=== PATIENT | male | born 1975 | race Caucasian/White ===

== ENCOUNTER 2018-07-12 17:47 | Emergency (ER) | payer MEDICAID, SELFPAY ==
[2018-07-12 17:47] VITALS: BP 114/69; PULSE 90; RESP 18; TEMP 36.6; O2SAT 99; BMI 27.6
--- NOTE | 2018-07-12 18:24 | RAD_ITS ---
STUDY: X-RAY - RIGHT HAND, ATTENTION SECOND FINGER REASON FOR EXAM: Male, 43 years old. Laceration TECHNIQUE: History view(s) of the finger were obtained. COMPARISON: None. FINDINGS: Normal metacarpal head. Normal metacarpophalangeal joint. Normal proximal phalanx. Normal middle phalanx. Normal distal phalanx. Normal proximal interphalangeal joint. Normal distal interphalangeal joint. RAD/Finger(s) Min 2 Views IMPRESSION: Normal x-ray examination of the finger. Electronically Signed: Girma Mcdaniel DO at 19:19 EDT Tel [phone], Service support ,
--- NOTE | 2018-07-12 19:17 | ED.DCSUM_ITS ---
- ER Visit Summary Date of Service: 07/12/18 Chief Complaint: Laceration History of Present Illness: The patient is a 43 M with a laceration to the proximal phalanx of his right index finger. This happened about an hour prior to arrival. The patient was removing tile from his floors. He had some bleeding to the area. He does not use blood thinners. Physical Examination: Vitals unremarkable. He has a 0.5 cm laceration to his right index finger at the proximal phalanx, dorsal side. No active bleeding. No foreign bodies visualized. Neurovascular intact distally. Good range of motion. Test Results: X-rays are pending the official read, but I do not appreciate any acute fracture or foreign bodies. Emergency Department Course and Treatment: Patient declined tetanus immunization. The wound was anesthetized with local lidocaine. We copiously. Explored. 3 simple interrupted sutures were placed. Treatment Plan: Follow-up for suture removal in 10 days. Return for any signs of infection or complications. Disposition: Discharge Impression: 1. Laceration right index finger 0.5 cm This note was generated with [employer] dictation software. It may contain incorrect words, spelling, and punctuation that were not noted in review of the chart prior to signing ED Disposition - Plan for ED Patient: Chief Complaint: Laceration Referrals: Marcos White MD [Primary Care Provider] -
--- NOTE | 2018-07-12 19:17 | ED.DEP ---
ED Disposition - Plan for ED Patient: Chief Complaint: Laceration Instructions: ED Laceration Hand Referrals: Marcos White MD [Primary Care Provider] -
[2018-07-12 19:23] VITALS: RESP 16
== END 2018-07-12 19:28 | disposition home or self-care (01) ==
PROVIDERS: Emergency Provider Emergency Medicine; Family Provider Internal Medicine; PCP Internal Medicine
DX: S61.210A Laceration without foreign body of right index finger without damage to nail, initial encounter (principal); K21.9 Gastro-esophageal reflux disease without esophagitis; E78.00 Pure hypercholesterolemia, unspecified; Z72.0 Tobacco use; Z79.899 Other long term (current) drug therapy; W26.9XXA Contact with unspecified sharp object(s), initial encounter; Y93.89 Activity, other specified; Y92.098 Other place in other non-institutional residence as the place of occurrence of the external cause; Y99.8 Other external cause status
CPT/HCPCS: 12001; 73140; 99282

== ENCOUNTER 2021-11-24 11:58 | Emergency (ER) | payer SELFPAY ==
[2021-11-24 11:59] VITALS: BP 140/84; PULSE 80; RESP 18; TEMP 36.5; O2SAT 99; BMI 22.2
[2021-11-24 12:18] VITALS: BP 135/84; PULSE 88; RESP 18; TEMP 36.3; O2SAT 98
--- NOTE | 2021-11-24 12:42 | EKG12_ITS ---
Test Reason : CP Blood Pressure : / mmHG Vent. Rate : 079 BPM Atrial Rate : 079 BPM P-R Int : 144 ms QRS Dur : 080 ms QT Int : 352 ms P-R-T Axes : 085 081 061 degrees QTc Int : 403 ms Normal sinus rhythm Normal ECG Confirmed by KAMLESH LOZANO, KARUNA ([id number]), city editor LACEY SERRANO ([id number]) on 11/25/2021 8:36:50 AM Referred By: FLAVIO/SARI Confirmed By:KARUNA WHITLOCK MD
--- NOTE | 2021-11-24 12:50 | RAD_ITS ---
History: chest pain EXAMINATION/TECHNIQUE: XR Chest 2 Views: COMPARISON: July 07, 2015 FINDINGS: LINES/DEVICES: None. LUNGS: Lungs remain clear but hyperinflated. No pneumothorax. MEDIASTINUM AND CARDIOVASCULAR STRUCTURES: Cardiac silhouette not enlarged. Central airways and mediastinal contour are unremarkable. BONES AND SOFT TISSUES: Unremarkable. RAD/Chest PA and Lateral IMPRESSION: No radiographic evidence of acute cardiopulmonary disease. COPD. at 1311 Reported and signed by: Jesse Barton MD Electronically Signed: Jesse Barton MD at 13:10 EST ,
[2021-11-24 12:53] LABS: Absolute Lymphocyte Count 2.22 X10^3/uL (0.83-4.51); Absolute Neutrophil Count 6.2 X10^3/uL (2.0-7.7); Basophil# 0.03 X10^3/uL; Basophil% 0.3 % (0-1); Eosinophil# 0.12 X10^3/uL; Eosinophils% 1.3 % (0-5); Hematocrit 43.9 % (40-54); Hemoglobin 15.6 g/dL (13.0-16.5); Lymphocyte # 2.22 X10^3/ul (0.83-4.51); Lymphocyte % 24.7 % (19-41); Mean Corp Hgb Conc 35.5 g/dL (32-36); Mean Corpuscular Hgb 30.5 pg (27.0-32.0); Mean Corpuscular Volume 85.7 fL (80-94); Mean Platelet Vol. 9.5 fl (6.2-12.0); Monocyte# 0.42 X10^3/uL; Monocyte% 4.7 % (0-10); NRBC Flagged by Analyzer 0 % (0-5); Neutrophil # 6.17 X10^3/uL (2.7-7.7); Neutrophil % 68.8 % (47-70); Platelet Count 265 K/mm3 (150-450); RBC Distribution Width CV 11.8 % (11.6-14.6); RBC Distribution Width SD 36.9 fl (35.1-43.9); Red Blood Count 5.12 M/mm3 (4.6-6.2)
--- NOTE | 2021-11-24 13:02 | EDS_ITS ---
HPI History of Present Illness Chief Complaint: Chest Pain Informant: patient Onset/Context/Timing Onset: Days (2) Activity at onset: gradual Timing: Continuous Quality: Positive for Pressure Location: Left Parasternal (lower) Current Severity: Mild Maximum Severity: Mild Worsened By: Nothing; Not Worsened By Breathing Relieved By: Nothing Associated Symptoms: Positive for Palpitations (yesterday); Negative for Nausea, Vomiting, Diaphoresis, Dyspnea, Cough, Fever and Lightheadedness Narrative Narrative: Patient states 2 days ago he suddenly felt cold across his chest and ever since has been having some mild discomfort in his lower left parasternal area, yesterday he had palpitations off and on, no near syncope or syncope from it. No diaphoresis, nausea, vomiting, coughing, fevers, other symptoms. He presents out of concern for the persistent discomfort in his chest. No history of cardiac disease, he takes medicines for depression, and he states he took some antacids prior to coming in a did not help at all. He states that by stopping eating sugar he cured himself of GERD which he was previously diagnosed with. No other medical problems. States he is not a smoker does not use any drugs. [facility] Medical History (Updated 11/24/21 @ 14:[address] Brian Bernal MD) Anxiety Depression GERD (gastroesophageal reflux disease) Home Medications hydroxyzine pamoate [Vistaril] 50 mg PO BID 05/01/14 [History Last Taken Unknown] buspirone 15 mg PO BID 07/12/18 [History Last Taken Unknown] fluoxetine 10 mg PO DAILY 11/24/21 [History Last Taken Unknown] Allergy/AdvReac Type Severity Reaction Status Date / Time doxycycline Allergy Nausea/Vom/ Verified 11/24/21 12:10 Diarrhea pineapple [Pineapple] Allergy Food Verified 11/24/21 12:10 Allergy Social History Smoking Status: Current every day smoker tobacco type: e-cigarettes ROS ROS ED Constitutional Constitutional ED: Denies chills or fever(s) Eyes Eyes: Denies change in vision or diplopia ENT ENT ED: Denies rhinorrhea or sore throat Cardiovascular Cardiovascular: Reports chest pain; Denies palpitations or pedal edema Respiratory/Chest Respiratory/Chest: Denies cough or dyspnea Gastrointestinal Gastrointestinal: Denies abdominal pain, diarrhea, nausea or vomiting Genitourinary Genitourinary ED: Denies dysuria or hematuria Musculoskeletal Musculoskeletal: Denies back pain, extremity pain or neck pain Integumentary Denies abscess or rash Neurologic Neurologic: Denies headache(s), paresthesias or weakness Psychiatric Psychiatric: Denies anxiety or suicidal thoughts EXAM Physical Exam Const Vital Signs: 11/24/21 11:59 11/24/21 12:18 11/24/21 14:03 Temperature 97.7 F L 97.4 F L Temperature Source Oral Temporal Pulse Rate 80 88 72 Respiratory Rate 18 18 16 Blood Pressure 140/84 H 135/84 H Blood Pressure Mean 102 101 Pulse Ox 99 98 98 Oxygen Delivery Method Room Air Room Air Room Air Positive well nourished and well developed General Appearance ED: well developed and NAD HEENT Reports moist mucous membranes normocephalic and atraumatic Eyes PERRL and EOMs intact bilaterally Neck full ROM and supple Resp normal respiratory effort and clear to auscultation bilaterally Cardio regular rate, regular rhythm and no murmurs GI non-tender and non-distended Auscultation: normoactive bowel sounds Palpation: soft Back/Spine no CVA tenderness General Back: other FROM Extremity normal to inspection General Extremety ED: Negative for edema, pulses abnormal or tenderness General Extremity: Negative for edema or pulses abnormal Neuro oriented x3, CN's II-XII intact bilaterally and no sensory deficits noted Sensorium / Orientation: awake and alert Motor Exam: strength 5/5 throughout Psych Mood & Affect: anxious Skin no rashes or lesions noted and no wounds Heart Score History: Moderately Suspicious ECG: Normal Age: </= 45 years Risk Factors: No Risk Factors Troponin: </= Normal Limit Score: 1 MDM MDM MDM Narrative Medical decision making narrative: Patient's work-up is negative including troponin at 3, he has had constant discomfort for over 24 hours. He has had no dysrhythmias or ectopy here in the emergency department. Referred back to his primary care physician, if he continues to have palpitations, or symptoms of a trang dysrhythmia advised to return to the ER. Lab Data Attestation: I reviewed the patient's lab results. Labs: Laboratory Results - last 24 hr 11/24/21 11/24/21 12:30 12:30 WBC 9.0 RBC 5.12 Hgb 15.6 Hct 43.9 MCV 85.7 MCH 30.5 MCHC 35.5 RDW Std Deviation 36.9 RDW Coeff of Hakeem 11.8 Plt Count 265 MPV 9.5 Immature Gran % (Auto) 0.200 Neut % (Auto) 68.8 Lymph % (Auto) 24.7 Weber % (Auto) 4.7 Eos % (Auto) 1.3 Baso % (Auto) 0.3 Absolute Neuts (auto) 6.2 Absolute Lymphs (auto) 2.22 Nucleated RBC % 0 Sodium 137 Potassium 3.9 Chloride 105 Carbon Dioxide 29.0 Anion Gap 3 L BUN 13 Creatinine 0.87 Estim Creat Clear Calc 110.96 Est GFR (MDRD) Af Amer 122 Est GFR (MDRD) Non-Af 101 BUN/Creatinine Ratio 14.9 Glucose 102 Calcium 8.5 Troponin I High Sens 3 Radiography Diagnostic Testing: Clinical Impression(s) from Imaging Studies Chest X-Ray 11/24/21 12:50 IMPRESSION: No radiographic evidence of acute cardiopulmonary disease. COPD. at 1311 Reported and signed by: Jesse Barton MD Electronically Signed: Jesse Barton MD at 13:10 EST , EKG Initial EKG: Attestation: I personally reviewed and interpreted this EKG as follows: Interpretation: Sinus Rhythm and No Acute Injury Pattern Comments: Normal EKG Discharge Plan Triage Chief Complaint: Chest Pain ED Provider: Brian Bernal Dx/Rx/DC Orders Clinical Impression: Chest pain, unspecified Instructions: ED Chest Pain, Uncertain Cause Prescriptions: No Action hydroxyzine pamoate [Vistaril] 50 MG capsule 50 mg PO BID RF: 0 buspirone 15 MG tablet 15 mg PO BID RF: 0 fluoxetine 10 mg Tablet 10 mg PO DAILY RF: 0 Primary Care Provider: Care Physician,No Primary Referrals: Care Physician,No Primary [Primary Care Provider] - Doctor,Your [STAFF PHYSICIAN] - 3-5 Days if not improving Disposition Disposition: Home, Self Care
[2021-11-24 13:15] LABS: Anion Gap 3 (5-15); BUN 13 mg/dL (7-18); BUN/Creat Ratio 14.9 RATIO (10-20); Calcium,Total 8.5 mg/dL (8.5-10.1); Chloride 105 mmol/L (98-107); Creatinine, Serum 0.87 mg/dL (0.70-1.30); EST Glomerular Filtration Rate 101 mL/min (>60); Est Glom Filt Rate - Afr Amer 122 mL/min (>60); Estimated Creatinine Clearance 110.96 ml/min; Glucose 102 mg/dL (74-106); Potassium 3.9 mmol/L (3.5-5.1); Sodium Level 137 mmol/L (136-145); Troponin-I HS 3 pg/mL (3.0-78.0)
[2021-11-24 14:03] VITALS: PULSE 72; RESP 16; O2SAT 98
[2021-11-24 14:27] VITALS: BP 143/103; PULSE 74; RESP 15; O2SAT 98
== END 2021-11-24 14:33 | disposition home or self-care (01) ==
PROVIDERS: Emergency Provider Emergency Medicine; Visit Provider Emergency Medicine
DX: R07.89 Other chest pain (principal); F17.290 Nicotine dependence, other tobacco product, uncomplicated; F41.9 Anxiety disorder, unspecified; F32.A Depression, unspecified; K21.9 Gastro-esophageal reflux disease without esophagitis; Z79.899 Other long term (current) drug therapy
CPT/HCPCS: 71046; 80048; 84484; 85025; 93005; 99285